=== PATIENT | female | born 1960 | race Caucasian/White ===

== ENCOUNTER 2018-10-20 17:20 | Emergency (ER) | payer OTHER ==
[~2018-10-20] VITALS: Ht 160 cm; Wt 55.1 kg
--- NOTE | 2018-10-20 17:25 | NUR ---
ROOM 4 PREPARED FOR PT SAFTEY. ALL CORDS & PT BELONGINGS REMOVED FROM ROOM.
--- NOTE | 2018-10-20 17:45 | NUR ---
PT BIB SELF WITH C/O SUICIDAL IDEALATION. PT STATES PLAN WOULD BE TO "GET A ROPE AND HANG MYSELF OR DRIVE OFF INTO TRAFFIC". NO ATTEMPT HAS BEEN MADE AT THIS TIME. DENIES N/V/D; SKIN IS PINK/WARM/DRY; AAOX4 WITH EVEN AND STEADY GAIT; LUNGS CLEAR BL; HR EVEN AND REGULAR; VSS; PATIENT POSITIONED FOR COMFORT; HOB ELEVATED; BEDRAILS UP X1; BED DOWN. ER MD MADE AWARE OF PT STATUS. ISSA, EMT, SITTING AT BEDSIDE FOR PT OBSERVATION
--- NOTE | 2018-10-20 17:51 | NUR ---
SUBMITTED REQUEST FOR TELEPSYCH PER DR. EDDY.
[2018-10-20 18:09] LABS: BASOPHILS # (AUTO) 0.1 K/uL (0.00-0.22); BASOPHILS % (AUTO) 0.8 % (0.0-2.0); EOSINOPHILS # (AUTO) 0.1 K/uL (0-0.4); EOSINOPHILS % (AUTO) 1.2 % (0.0-4.0); HEMATOCRIT 40.2 % (36-48); HEMOGLOBIN 13.7 g/dL (12.0-16.0); LYMPHOCYTES # (AUTO) 2.4 K/uL (2.5-16.5); LYMPHOCYTES % (AUTO) 25.2 % (20.5-51.1); MEAN CORPUSCULAR HEMOGLOBIN 31 pg (27-31); MEAN CORPUSCULAR HGB CONC 34 g/dL (33-37); MEAN CORPUSCULAR VOLUME 90.8 fL (80-94); MONOCYTES # (AUTO) 0.6 K/uL (0.8-1.0); NEUTROPHILS # (AUTO) 6.3 K/uL (1.8-7.7); NEUTROPHILS % (AUTO) 66.8 % (42.2-75.2); PLATELET COUNT (AUTO) 195 K/uL (140-450); RED BLOOD CELL COUNT(AUTO) 4.42 MIL/uL (4.20-5.40); RED CELL DISTRIBUTION WIDTH 13.1 % (11.6-13.7); WHITE BLOOD COUNT (AUTO) 9.5 K/uL (4.8-10.8)
[2018-10-20 18:20] LABS: ANION GAP 11.3 (8-16); CARBON DIOXIDE 28.2 mmol/L (21-32); CHLORIDE 94 mmol/L (98-107); CREATININE 0.9 mg/dL (0.6-1.3); GFR ARICAN-AMERICAN 83 mL/min (>90); GLUCOSE 82 mg/dL (74-106); POTASSIUM 3.5 mmol/L (3.5-5.1); SODIUM SERUM 130 mmol/L (136-145); UREA NITROGEN, BLOOD 11 mg/dL (7-18)
[2018-10-20 18:26] LABS: ALBUMIN 3.9 g/dL (3.4-5.0); ASPARTATE AMINOTRANSFERASE 19 U/L (15-37); SALICYLATE 3.5 mg/dL (2.8-20.0); TOTAL BILIRUBIN 0.4 mg/dL (0.0-1.0)
[2018-10-20 18:29] LABS: APPEARANCE,URINE CLEAR (CLEAR); BILIRUBIN,URINE NEGATIVE (NEGATIVE); BLOOD, URINE TRACE-I (NEGATIVE); COLOR,URINE YELLOW (YELLOW); LEUKOCYTE ESTERASE ,URINE NEGATIVE (NEGATIVE); NITRITE, URINE NEGATIVE (NEGATIVE); PH,URINE 6.5 (5.0-9.0); UGLUCOSE NEGATIVE (NEGATIVE)
[2018-10-20 18:34] LABS: BARBITURATE, URINE NEG. ng/ml (NEG <=200); BENZODIAZEPINE, URINE NEG. ng/mL (NEG <=200); CANNABINOID, URINE NEG. ng/mL (NEG <=50); COCAINE, URINE NEG. ng/mL (NEG <=300); OPIATE, URINE NEG. ng/mL (NEG <=2000); PHENCYCLIDINE SCREEN,URINE NEG. ng/mL (NEG <=25)
--- NOTE | 2018-10-20 18:40 | NUR ---
SPOKE WITH PSYCHIATRIST DR. NOGUEIRA AND GAVE REPORT ON PT.
[2018-10-20 18:43] LABS: ACETAMINOPHEN < 0.5 ug/ml (10-30)
--- NOTE | 2018-10-20 18:43 | NUR ---
TELEPSYCH CONSULT IN PROGRESS
[2018-10-20] MEDS ORDERED: clonazePAM 0.5 MG TAB PO ONE (19:45)
--- NOTE | 2018-10-20 20:18 | NUR ---
Patient chart has been recieved [facility]. Will begin calling for bed placement at contracted facilities.
--- NOTE | 2018-10-20 20:24 | NUR ---
PT PERSONAL BELONGINGS HANDED OVER TO JOSE HENSON FROM [facility] PER PT REQUEST
--- NOTE | 2018-10-20 20:34 | NUR ---
Called the following facilities for bed placement. [facility] Bed @ [facility] in [place]. Spoke with Nannette, packet was faxed over by request. Once they review the patient chart they will call [facility] ED or Call Center to let us know if they can accommodate the patient tonight. No beds available tonight at these facilities. [facility], spoke with Mickey. [facility], spoke with Martínez. [facility], spoke with June. [facility], spoke with Loreto. [facility], spoke with Sydnee. Call Center will inform [facility] if a bed becomes available.
--- NOTE | 2018-10-20 21:00 | NUR ---
Patient appears to be sleeping comfortably in bed. Vital Signs within normal limits. Respirations even and unlabored. Sitter at bedside.
--- NOTE | 2018-10-20 21:19 | NUR ---
Cheryl with [facility] called and wanted to speak with patient's RN. I gave Cheryl the number to [facility] ED. Cheryl will also give bed information to [facility] ED if they accommodate the patient.
--- NOTE | 2018-10-20 21:38 | NUR ---
Patient to be transferred to [facility]. Is being transferred due to SI, 5150 hold. Receiving facility has accepting physician and available space. ER physician has signed transfer form. Patient or responsible green party has agreed to transfer and signed form. Patient belongings inventoried and will be sent with patient. Copy of nursing notes, lab reports, EKG, Physicians Orders and X-rays to be sent with patient. Report called to KIRBY Luna at receiving facility. [facility] ambulance service has been called for transfer. ETA is 90 minutes.
--- NOTE | 2018-10-20 21:58 | NUR ---
[facility] AT BEDSIDE
[2018-10-20 22:02] VITALS: BP 102/62
--- NOTE | 2018-10-20 22:02 | NUR ---
[facility] AT BEDSIDE FOR PT TRANSFER. REPORT GIVEN TO EMT. PT IS AWAKE, ALERT, ORIENTED, CALM AND COOPERATIVE. VSS. PT AMBULATED TO [facility]. TRANSFER OF CARE AT THIS TIME.
== END 2018-10-20 23:01 ==
LOC: MED 17:20
DX: R45.851 Suicidal ideations (principal); F17.200 Nicotine dependence, unspecified, uncomplicated
CPT/HCPCS: 36415; 80053; 80305; 81003; 81025; 84484; 85025; 99285; G0480; G0482; 81002